=== PATIENT | male | born 1970 | race Caucasian/White ===

== ENCOUNTER 2017-01-27 11:19 | Emergency (ER) | payer OTHER ==
[2017-01-27 11:35] VITALS: TEMP 97.5
--- NOTE | 2017-01-27 12:46 | EDPHY ---
H & P Stated Complaint: 2 weeks l sided tongue/facial numbness/having difficulty focusing l eye Source: Patient Exam Limitations: No limitations - Personal History Current Tetanus/Diphtheria Vaccine: Yes - Medical/Surgical History Hx Asthma: No Hx Chronic Respiratory Disease: No Hx Diabetes: No Hx Cardiac Disease: No Hx Renal Disease: No Hx Cirrhosis: No Hx Alcoholism: No Hx HIV/AIDS: No Hx Splenectomy or Spleen Trauma: No Other PMH: hernia surg - Social History Smoking Status: Never smoked HPI/ROS: CHIEF COMPLAINT: Left-sided facial numbness, visual disturbance HISTORY OF PRESENT ILLNESS: Patient complains of several weeks duration of left-sided facial tingling and numbness. Originally started on the tongue and then spread to the lips and the entire left side of the face. This worsened over 7-10 days. He has had no headache. No slurred speech. No facial droop per spouse. No loss of hearing. No changes in hearing while in the shower. He has had some difficulty focusing with the left eye. No fever chills. No neck pain or stiffness. He has had some recent travel when he noticed difficulty reading the menu from the left eye. He was seen by his primary care physician last week laboratory studies but no imaging. No history of coronary artery disease, elevated cholesterol or TIA or stroke. No distal neuro complaints. No modifying factors. No other associated complaints. REVIEW OF SYSTEMS: Ten systems reviewed and are negative unless otherwise noted in the HPI PAST MEDICAL HISTORY: Denies any medical history PAST SURGICAL HISTORY: None SOCIAL HISTORY: Nonsmoker. Lives in [place] and travels frequently to [place] FAMILY HISTORY: Noncontributory EXAMINATION General Appearance: Alert, no distress Head: normocephalic, atraumatic Eyes: Pupils equal and round, no conjunctival pallor or injection. EOMs intact. No nystagmus ENT, Mouth: Mucous membranes moist Neck: Normal inspection, supple, non-tender Respiratory: Lungs are clear to auscultation Cardiovascular: Regular rate and rhythm. No murmur. Pulses intact distally Gastrointestinal: Abdomen is soft and nontender Back: non-tender, no bony abnormalities Neurological: GCS 15. A&O, nonfocal, normal gait. Strength is symmetric in all 4 limbs. No pronator drift. No dysmetria. Symmetric sensory of the facial nerve. No facial droop. Normal steady gait. Skin: Warm and dry, no rash. No petechiae or purpura Extremities: Nontender, no pedal edema Psychiatric: Mood and affect normal DIFFERENTIAL DIAGNOSES: Including but not limited to Carrington's palsy, CVA, facial nerve neuropathy, trigeminal neuralgia, TIA MDM: 12:45 p.m. Left-sided facial nerve disturbance with occasional visual disturbance and trouble focusing. Examination is nonfocal. Under laboratory studies an MRI of the brain. I suspect this is facial nerve involvement only without any central lesion or abnormality. 1:45 p.m. Patient is currently in MRI. He is awake alert no acute distress. Vital signs stable. 2:15 p.m. Notified by radiologist. MRI reveals a abnormality on the FLAIR images involving the left facial nerve an internal auditory canal. There is also some mild white matter disease bilaterally but does not fit 1 clinical picture. Patient will be taken back to MRI for postcontrast imaging. I have re- evaluated the patient and informed him of this. He remains awake alert no acute distress. No stroke-like symptoms. 3:15 p.m. Notified by radiologist Dr. Barragan. MRI findings were discussed as documented. Suspect possible atypical demyelinating disease. No emergent recommendations at this time per Radiology. Recommend outpatient follow-up with Neurology 3:40 p.m. Case discussed with on-call neurologist Dr. Butcher. He reviewed the patient's MRI on the telephone me. He does recommend that the patient be seen in his office for demyelination workup. No further recommendations in the emergency department at this time. 3:50 p.m. I discussed this with the patient regarding the abnormal MRI and need for outpatient follow-up. We also discussed the possibility of a left-sided Carrington's palsy. There is no evidence of stroke hemorrhage or mass on the MRI. He is stable for discharge home at this time. He is to contact Dr. Butcher for 1st available appointment. We discussed emergency department precautions. The patient and his spouse at bedside are comfortable with this plan. He is discharged home stable condition. (Nico Delacruz) Constitutional: Initial Vital Signs Temperature (C) 97.5 F 01/27/17 11:32 Heart Rate 60 01/27/17 11:32 Respiratory Rate 18 01/27/17 11:32 Blood Pressure 98/64 L 01/27/17 11:32 O2 Sat (%) 98 01/27/17 11:32 O2 Delivery Mode Room Air Allergies/Adverse Reactions: No Known Allergies Allergy (Unverified 01/27/17 11:32) Home Medications: Medication Instructions Recorded Claritin 01/27/17 Melatonin 01/27/17 Medical Decision Making - Diagnostics EKG Interpretation: 12-lead EKG interpreted by me; official reading is in trace master. My interpretation is sinus rhythm rate 50 with early repolarization. (Harinder Mansfield) Imaging Results: Imaging Impressions Brain MRI 01/27/17 14:19 Impression: 1. Multiple periventricular and deep hemispheric white matter lesions are seen bilaterally supratentorial. One lesion is seen in the left cerebellar peduncle at the junction with the [place] near the origin of the trigeminal nerve. This lesion shows abnormal enhancement. The other lesions show no evidence for abnormal enhancement and no evidence for diffusion restriction. This could represent atypical demyelinating disease or less likely small vessel ischemic disease. Recommend neurology consultation. 2. Tiny focus of abnormal signal intensity on FLAIR imaging near the porus acusticus left internal auditory canal, which could be artifact or small focus of demyelinization or inflammation of the facial nerve corresponding to the facial numbness and paresthesia. No evidence for mass or abnormal enhancement. Results discussed with Nico Delacruz PA-C on 27 January 2017. - Data Points Laboratory Results: Laboratory Results 01/27/17 12:45 01/27/17 12:45 01/27/17 01/27/17 12:45 12:45 WBC 4.43 10^3/uL 10^3/uL (3.80-9.50) RBC 4.27 10^6/uL L 10^6/uL (4.40-6.38) Hgb 14.1 g/dL g/dL (13.7-17.5) Hct 41.2 % % (40.0-51.0) MCV 96.5 fL fL (81.5-99.8) MCH 33.0 pg pg (27.9-34.1) MCHC 34.2 g/dL g/dL (32.4-36.7) RDW 12.5 % % (11.5-15.2) Plt Count 278 10^3/uL 10^3/uL (150-400) MPV 9.8 fL fL (8.7-11.7) Neut % (Auto) 56.9 % % (39.3-74.2) Lymph % (Auto) 33.2 % % (15.0-45.0) [place] % (Auto) 8.4 % % (4.5-13.0) Eos % (Auto) 1.1 % % (0.6-7.6) Baso % (Auto) 0.2 % L % (0.3-1.7) Nucleat RBC Rel Count 0.0 % % (0.0-0.2) Absolute Neuts (auto) 2.52 10^3/uL 10^3/uL (1.70-6.50) Absolute Lymphs (auto) 1.47 10^3/uL 10^3/uL (1.00-3.00) Absolute Monos (auto) 0.37 10^3/uL 10^3/uL (0.30-0.80) Absolute Eos (auto) 0.05 10^3/uL 10^3/uL (0.03-0.40) Absolute Basos (auto) 0.01 10^3/uL L 10^3/uL (0.02-0.10) Absolute Nucleated RBC 0.00 10^3/uL 10^3/uL (0-0.01) Immature Gran % 0.2 % % (0.0-1.1) Immature Gran # 0.01 10^3/uL 10^3/uL (0.00-0.10) Sodium 140 mEq/L mEq/L (134-144) Potassium 3.8 mEq/L mEq/L (3.5-5.2) Chloride 103 mEq/L mEq/L (97-110) Carbon Dioxide 26 mEq/l mEq/l (22-31) Anion Gap 11 mEq/L mEq/L (8-16) BUN 24 mg/dL H mg/dL (7-23) Creatinine 0.7 mg/dL mg/dL (0.7-1.3) Estimated GFR > 60 Glucose 97 mg/dL mg/dL (70-100) Calcium 9.2 mg/dL mg/dL (8.5-10.4) Troponin I < 0.012 ng/mL ng/mL (0.000-0.034) Medications Given: Discontinued Medications Diazepam (Valium Injection) 5 mg IVP EDNOW ONE Stop: 01/27/17 13:24 Last Admin: 01/27/17 13:26 Dose: 5 mg Departure - Departure Disposition: Home, Routine, Self-Care Clinical Impression: Carrington's palsy, Abnormal MRI of head Condition: Good Instructions: Carrington Palsy (ED), Magnetic Resonance Imaging (ED) Additional Instructions: 1. Follow up with Neurology with soonest available appointment 2. Follow up with primary care physician 3. ED precautions as discussed Referrals: KRIS PACHECO [Other] - As per Instructions Karan Butcher MD [Medical Doctor] - As per Instructions
--- NOTE | 2017-01-27 12:54 | CPEKG ---
Heart Rate: 50 RR Interval: 1200 P-R Interval: 180 QRSD Interval: 84 QT Interval: 428 QTC Interval: 391 P [place]: 26 QRS [place]: 35 T Wave [place]: 38 EKG Severity - BORDERLINE ECG - EKG Impression: SINUS RHYTHM EKG Impression: CONSIDER LEFT VENTRICULAR HYPERTROPHY EKG Impression: ST ELEV, PROBABLE NORMAL EARLY REPOL PATTERN Electronically Signed By: Harinder Mansfield 27-Jan-2017 13:17:47
[2017-01-27 12:59] LABS: % IMMATURE GRANULYOCYTES 0.2 % (0.0-1.1); ABSOLUTE IMMATURE GRANULOCYTES 0.01 10^3/uL (0.00-0.10); ADD DIFF? NO; ADD MORPH? NO; ADD SCAN? NO; ATYPICAL LYMPHOCYTE FLAG 10 (0-99); FRAGMENT RBC FLAG 0 (0-99); HEMATOCRIT 41.2 % (40.0-51.0); HEMOGLOBIN 14.1 g/dL (13.7-17.5); LEFT SHIFT FLG 0 (0-99); LIPEMIA HEMOLYSIS FLAG 90 (0-99); MEAN CELL HEMOGLOBIN CONCENTR. 34.2 g/dL (32.4-36.7); MEAN CELL VOLUME 96.5 fL (81.5-99.8); MEAN PLATELET VOLUME 9.8 fL (8.7-11.7); PLATELET CLUMPS FLAG 10 (0-99); PLATELET COUNT 278 10^3/uL (150-400); RED BLOOD CELL COUNT 4.27 10^6/uL (4.40-6.38); RED CELL DISTRIBUTION WIDTH 12.5 % (11.5-15.2)
[2017-01-27 13:12] LABS: ANION GAP 11 mEq/L (8-16); CALCIUM 9.2 mg/dL (8.5-10.4); CARBON DIOXIDE 26 mEq/l (22-31); CHLORIDE 103 mEq/L (97-110); CREATININE 0.7 mg/dL (0.7-1.3); GLOMERULAR FILTRATION RATE > 60; GLUCOSE 97 mg/dL (70-100); POTASSIUM 3.8 mEq/L (3.5-5.2); SODIUM 140 mEq/L (134-144)
[2017-01-27] MEDS ORDERED: DIAZEPAM 10 MG/2 ML SYR IVP ONE (13:23)
[2017-01-27 13:24] LABS: TROPONIN I < 0.012 ng/mL (0.000-0.034)
[2017-01-27] MEDS ORDERED: GADOBUTROL 10 ML VIAL IVP ONE (14:24)
[2017-01-27 16:08] VITALS: BP 100/78; PULSE 61; RESP 16; O2SAT 94
== END 2017-01-27 16:07 | disposition home or self-care (01) ==
DX: G51.0 Bell's palsy (principal); R93.0 Abnormal findings on diagnostic imaging of skull and head, not elsewhere classified
CPT/HCPCS: 96374; A9585

== ENCOUNTER → 2017-05-28 | Outpatient (CLI) | payer BC, OTHER | LOC: FIMAGING 13:03 | PROVIDERS: ATTEND Specialist | DX: G37.9 Demyelinating disease of central nervous system, unspecified (principal); M50.322 Other cervical disc degeneration at C5-C6 level; M48.02 Spinal stenosis, cervical region; M46.92 Unspecified inflammatory spondylopathy, cervical region ==